=== PATIENT | male | born 1945 | race African-American/Black ===

== ENCOUNTER 2018-09-30 05:40 | Emergency (ER) | payer OTHER, MEDICARE ==
--- NOTE | 2018-09-30 06:21 | EKG REPORT ---
SEVERITY:- NORMAL ECG - SINUS RHYTHM : Confirmed by: Shaheen Fang MD 30-Sep-2018 06:20:22
[2018-09-30] MEDS ORDERED: TRAMADOL HCL 50 MG TABLET PO ONE (06:33)
[2018-09-30] MEDS ORDERED: LIDOCAINE 5% (700 MG) TRANSDERMAL ADH..PATCH TP ONE (06:33)
[2018-09-30 07:13] LABS: ABSOLUTE EOSINOPHILS # (AUTO) 0.1 10^3/uL (0.0-0.6); ABSOLUTE LYMPHOCYTES (AUTO) 1.4 10^3/uL (0.5-4.7); ABSOLUTE MONOCYTES (AUTO) 0.4 10^3/uL (0.1-1.4); BASOPHILS % (AUTO) 0.6 % (0-2); EOSINOPHILS % (AUTO) 2.3 % (0-6); HEMATOCRIT 38.9 % (37.9-51.0); HEMOGLOBIN 12.7 g/dL (13.5-17.0); MEAN CORPUSCULAR HEMOGLOBIN 29.1 pg (27.0-33.4); MEAN CORPUSCULAR HGB CONC 32.7 g/dL (32.0-36.0); MEAN CORPUSCULAR VOLUME 89 fl (80-97); MONOCYTES % (AUTO) 8.4 % (3-13); PLATELET COUNT 262 10^3/uL (150-450); RED BLOOD COUNT 4.36 10^6/uL (4.35-5.55); RED CELL DISTRIBUTION WIDTH 13.6 % (11.5-14.0); SEGMENTED NEUTROPHILS % (AUTO) 60.7 % (42-78); TOTAL CELLS COUNTED % (AUTO) 100 %; WHITE BLOOD COUNT 4.9 10^3/uL (4.0-10.5)
[2018-09-30 07:33] LABS: APPEARANCE,URINE CLEAR; BILIRUBIN,URINE NEGATIVE (NEGATIVE); COLOR,URINE YELLOW; GLUCOSE, URINE NEGATIVE (NEGATIVE); KETONES,URINE NEGATIVE (NEGATIVE); LEUKOCYTE ESTERASE,URINE NEGATIVE (NEGATIVE); NITRITE,URINE NEGATIVE (NEGATIVE); PROTEIN,URINE NEGATIVE (NEGATIVE); URINE SPECIFIC GRAVITY 1.012; UROBILINOGEN,URINE NEGATIVE mg/dL (<2.0)
[2018-09-30 07:56] LABS: BLOOD UREA NITROGEN 17 mg/dL (7-20); CALCIUM 9.7 mg/dL (8.4-10.2); GLUCOSE 105 mg/dL (75-110)
[2018-09-30 07:57] LABS: ANION GAP 10 (5-19); CARBON DIOXIDE 28 mmol/L (22-30); CHLORIDE 105 mmol/L (98-107); CREATINE KINASE 61 U/L (55-170); POTASSIUM 4.4 mmol/L (3.6-5.0); SODIUM 143.1 mmol/L (137-145)
--- NOTE | 2018-09-30 08:54 | ER Document Report ---
ED General - General Chief Complaint: Shoulder Pain Stated Complaint: SHOULDER PAIN Time Seen by Provider: 09/30/18 06:15 - HPI Patient complains to provider of: Bilateral shoulder pain Notes: Patient coming in for bilateral shoulder pain worsening patient states injured himself on September 01 getting pinned between his equipment at work. Patient states he has followed up with his primary care provider to [place] patient states he has had x-rays performed and has been placed on meloxicam has been taking Tylenol for pain control. Patient states continues to hurt. Patient denies any other follow-up. Patient upon my evaluation resting comfortably. Denies any fevers chills nausea vomiting diarrhea chest pain abdominal pain. Patient states he has been having dark urine told by the [facility] that this may be due to his cholesterol medication simvastatin. Patient denies any pain in his legs. - Related Data Allergies/Adverse Reactions: No Known Allergies Allergy (Unverified 09/30/18 07:05) Past Medical History - Social History Smoking Status: Former Smoker Family History: Reviewed & Not Pertinent Patient has suicidal ideation: No Patient has homicidal ideation: No - Past Medical History Cardiac Medical History: Reports: Hx Hypercholesterolemia, Hx Hypertension Renal/ Medical History: Denies: Hx Peritoneal Dialysis Review of Systems - Review of Systems Constitutional: No symptoms reported EENT: No symptoms reported Cardiovascular: No symptoms reported Respiratory: No symptoms reported Gastrointestinal: No symptoms reported Genitourinary: No symptoms reported Male Genitourinary: No symptoms reported Musculoskeletal: Other - Bilateral shoulder pain Skin: No symptoms reported Hematologic/Lymphatic: No symptoms reported Neurological/Psychological: No symptoms reported -: Yes All other systems reviewed and negative Physical Exam - Vital signs Vitals: Temp Pulse Resp BP Pulse Ox 97.7 F 74 16 156/85 H 97 09/30/18 05:45 09/30/18 05:45 09/30/18 05:45 09/30/18 05:45 09/30/18 05:45 Interpretation: Normal - General General appearance: Appears well, Alert - HEENT Head: Normocephalic, Atraumatic Eyes: Normal Pupils: PERRL - Respiratory Respiratory status: No respiratory distress Chest status: Nontender Breath sounds: Normal Chest palpation: Normal - Cardiovascular Rhythm: Regular Heart sounds: Normal auscultation Murmur: No - Abdominal Inspection: Normal Distension: No distension Bowel sounds: Normal Tenderness: Nontender Organomegaly: No organomegaly - Back Back: Normal, Nontender - Extremities General upper extremity: Normal inspection, Nontender, Normal color, Normal ROM , Normal temperature, Other - 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 There is very minimal pain to palpation of the shoulder most of the tender area that is minimal is around the insertion of the triceps area bilaterally General lower extremity: Normal inspection, Nontender, Normal color, Normal ROM , Normal temperature, Normal weight bearing. No: Joaquín's sign - Neurological Neuro grossly intact: Yes Cognition: Normal Orientation: AAOx4 [place] Coma Scale Eye Opening: Spontaneous Reid Coma Scale Verbal: Oriented [place] Coma Scale Motor: Obeys Commands [place] Coma Scale Total: 15 Speech: Normal Motor strength normal: LUE, RUE, LLE, RLE Sensory: Normal - Psychological Associated symptoms: Normal affect, Normal mood - Skin Skin Temperature: Warm Skin Moisture: Dry Skin Color: Normal Course - Re-evaluation Re-evalutation: 09/30/18 14:06 Because the patient's history of dark urine on a statin the felt was necessary to check blood work and urinalysis. This is otherwise negative. Patient at this time states already has had x-rays performed no other trauma no need for x- rays at this time. Patient otherwise has remained stable. No clear etiology for the patient's bilateral shoulder pain. More likely muscle skeletal in nature. Patient was given Ultram for pain control recommended to [facility] for [facility]. - Vital Signs Vital signs: Temp Pulse Resp BP Pulse Ox 98.0 F 64 16 148/75 H 100 09/30/18 09:05 09/30/18 09:05 09/30/18 09:05 09/30/18 09:05 09/30/18 09:05 - Laboratory Result Diagrams: 09/30/18 06:55 09/30/18 06:55 Laboratory results interpreted by me: 09/30/18 06:55 Hgb 12.7 L Discharge - Discharge Clinical Impression: Bilateral shoulder pain Qualifiers: Chronicity: unspecified Qualified Code(s): M25.511 - Pain in right shoulder Condition: Good Disposition: HOME, SELF-CARE Instructions: Muscle Strain ([facility]), Exercise Program [facility] the Shoulder ([facility]) Additional Instructions: Your evaluation does not reveal any critical pathology for your bilateral shoulder pain. I will highly recommend following up with your primary care physician for the evaluation of your bilateral shoulder pain. Laboratory studies today do not show any signs of significant pathology and urinalysis are in your blood. Continue your home medications as prescribed take Tylenol and near anti-inflammatory meloxicam for pain control. Ultram for severe pain. Prescriptions: Tramadol HCl [Ultram 50 mg Tablet] 50 mg PO ASDIR PRN #20 tablet PRN Reason: Forms: Return to Work
[2018-09-30 09:06] VITALS: BP 148/75
== END 2018-09-30 09:06 | disposition home or self-care (01) ==
LOC: ER 05:40
DX: M25.511 Pain in right shoulder (principal); M25.512 Pain in left shoulder; Z79.899 Other long term (current) drug therapy; X58.XXXA Exposure to other specified factors, initial encounter; Z87.891 Personal history of nicotine dependence; I10 Essential (primary) hypertension
CPT/HCPCS: 36415; 80048; 81001; 82550; 84484; 85025; 93005; 93010; 99283